=== PATIENT | male | born 1990 ===

== ENCOUNTER 2016-12-06 09:06 | Day surgery (SDC) | payer BC ==
[~2016-12-06] VITALS: Ht 182.9 cm; Wt 136.2 kg
[~2016-12-06 09:06] MED LIST: AMBIEN5 MG PO; ASPIRIN ADULT L81 M1 PO; CONCERTA27 MG PO; METHYLPHENIDATE10 MG PO; TUMS500 MG
--- NOTE | 2016-12-06 11:31 | Provider's Discharge Care Plan ---
Problem, Goal, Plan Problem List 1. Status post colonoscopy Goals: Screening Instructions: Follow up as needed, Take meds as directed, high fiber diet
--- NOTE | 2016-12-06 11:31 | Provider's Discharge Care Plan ---
Problem, Goal, Plan Problem List 1. Status post colonoscopy Goals: Screening Instructions: Follow up as needed, Take meds as directed, high fiber diet
--- NOTE | 2016-12-06 11:36 | Operative Report ---
Operative Report Date of Surgery: 12/06/16 Preoperate Diagnosis: bright red blood per rectum Postoperative Diagnosis: normal colonoscopy Surgeon: Joseph Pope MD [employer] Surgeon: none Procedure Performed: Colonoscopy Anesthesia: TIVA Indications: A 25-year-old male with history of bright red blood per rectum. FINDINGS: Normal appearing cecum, ascending, transverse, descending colon and sigmoid. Rectal wall normal. No evidence of inflammatory changes or exophytic lesions which could be causing the bright red blood per rectum. Surgical Technique: Patient was brought to the operating room. Patient was placed in the left lateral decubitus position. Patient was administered TIVA by anesthesia. Once anesthesia had taken effect digital rectal examination was performed. No masses or stenosis was appreciated. This was then followed by the passage of a fiberoptic video flexible Olympus colonoscope. The scope was then passed without difficulty and the cecum was visualized. The cecum was identified by anatomical landmarks and anterior abdominal wall ballottement. On withdrawing the scope the aforementioned findings were noted. The scope was then retroflexed and a good view of the rectal wall obtained. The scope was then completely withdrawn. Patient tolerated procedure well. Patient was transferred to the recovery room in stable condition. There were no intraoperative or anesthetic complications.
== END 2016-12-06 13:00 | disposition home or self-care (01) ==
LOC: OR SRH 09:06 → OB SRH 09:09 → OR SRH 11:00
PROVIDERS: Specialist
PROC: 0DJD8ZZ Inspection of Lower Intestinal Tract, Via Natural or Artificial Opening Endoscopic (ICD-10-PCS; principal; 2016-12-06 11:00)
DX: K92.2 Gastrointestinal hemorrhage, unspecified (principal); Z83.79 Family history of other diseases of the digestive system